=== PATIENT | male | born 1985 | race Caucasian/White ===

== ENCOUNTER 2017-04-24 10:08 | Emergency (ER) | payer OTHER ==
[2017-04-24 10:19] VITALS: BP 137/82; PULSE 79; RESP 16; TEMP 98.8; O2SAT 97
--- NOTE | 2017-04-24 11:18 | EDPHY ---
H & P Stated Complaint: apthous ulcer of tongue dx yesterday/now with increased lympadenopathy HPI/ROS: Chief complaint: Swollen lymph nodes on neck History of present illness: This is a 31-year-old male who presents to the emergency department for swollen lymph node on his neck. He has noted the lymph nodes developing over the last day on both sides. They are large and tender. He has had throat discomfort the last few days. He did go to urgent care yesterday and was diagnosed with an aphthous ulcer. He is using Magic mouthwash. He denies other associated signs or symptoms including no fevers, no swelling of the throat, no difficulty talking, swallowing or breathing. No other complaints. - Personal History Current Tetanus/Diphtheria Vaccine: No - Medical/Surgical History Hx Asthma: No Hx Chronic Respiratory Disease: No Hx Diabetes: No Hx Cardiac Disease: No Hx Renal Disease: No Hx Cirrhosis: No Hx Alcoholism: No Hx HIV/AIDS: No Hx Splenectomy or Spleen Trauma: No Other PMH: asthma, irregular heartbeat,anxiety/vocal chord dysfunction - Social History Smoking Status: Never smoked - Physical Exam Exam: General Appearance: Alert and no distress. Eyes: Pupils equal and round no injection. ENT: Tympanic membranes, external auditory canals, external easr and surrounding soft tissue including over the mastoids are unremarkable. Nasopharynx is not injected. There is no rhinorrhea. Oropharynx is mildly injected. There is no edema. There is no exudate. There is no asymmetry. The uvula is midline. No elevation of the tongue. There is no hoarseness, no drooling, no trismus, no stridor. Lymph: Bilateral cervical adenopathy that is tender. No adenopathy noted to the rest of had, supraclavicularly or axillary. Respiratory: Chest is non tender, lungs are clear to auscultation. Cardiac: regular rate and rhythm Musculoskeletal: Neck is supple and non tender. Extremities have full range of motion and are non tender. Skin: No rashes or lesions. Constitutional: Initial Vital Signs Temperature (C) 37.1 C 04/24/17 10:15 Heart Rate 79 04/24/17 10:15 Respiratory Rate 16 04/24/17 10:15 Blood Pressure 137/82 H 04/24/17 10:15 O2 Sat (%) 97 04/24/17 10:15 O2 Delivery Mode Room Air Allergies/Adverse Reactions: Sulfa (Sulfonamide Antibiotics) Allergy (Verified 04/24/17 10:14) Home Medications: Medication Instructions Recorded Escitalopram Oxalate 10 mg PO DAILY 06/17/16 Medical Decision Making ED Course/Re-evaluation: Patient seen under the supervision of my primary supervising physician Dr. Lin Calderon. Patient presents to the emergency department for evaluation of swelling of his lymph nodes in his neck. He does have what appears to be a current infection of his oropharynx. Strep swab is negative. Likely these are reactive lymph nodes. I have discussed with him to follow up with his primary care doctor to re-evaluate these and insure they resolve and if not for further evaluation. Return precautions are given. Patient voiced understanding and agreement with plan. Differential Diagnosis: Included but not limited to reactive lymphadenopathy, malignant lymphadenopathy , abscess formation Departure - Departure Disposition: Home, Routine, Self-Care Clinical Impression: Lymphadenopathy Condition: Good Instructions: Lymphadenopathy (ED) Additional Instructions: Follow-up with primary care doctor for recheck to ensure that you lymph nodes return to normal If symptoms worsen or new symptoms develop return to the emergency room for recheck Referrals: NONE *PRIMARY CARE P,. [Primary Care Provider] - As per Instructions
== END 2017-04-24 11:42 | disposition home or self-care (01) ==
DX: R59.0 Localized enlarged lymph nodes (principal); J45.909 Unspecified asthma, uncomplicated

== ENCOUNTER 2018-06-28 10:53 | Observation (INO) | payer OTHER ==
[2018-06-28] MEDS ORDERED: NS 1,000 ML IV ONE (10:57)
[2018-06-28 11:45] LABS: PLATELET COUNT 252 10^3/uL (150-400)
--- NOTE | 2018-06-28 11:47 | PDGENHP ---
History & Physical Chief Complaint: SVT up to 260bpm History of Present Illness: SVT with HRs up to 260bpm noted on [employer] loop recorder. Relevant Physical Exam: General: A&Ox4, no apparent distress. Respiratory: CTA. Cardiac: Regular rate and rhythm, S1, S2. Extremities: Pulses 2+ bilaterally, no edema Cardiorespiratory Assessment: Proceed with EPS and SVT ablation as planned for today
[2018-06-28 11:55] LABS: INR 1.06 (0.83-1.16)
[2018-06-28] MEDS ORDERED: MIDAZOLAM 2 MG/2 ML VIAL IVP ONE (12:51)
[2018-06-28] MEDS ORDERED: HEPARIN 10,000 UNIT/10 ML MDV (1,000 UNIT/ML) ONE (12:51)
[2018-06-28] MEDS ORDERED: LIDOCAINE 1% 300 MG/30 ML SDV ONE (12:51)
[2018-06-28] MEDS ORDERED: ISOPROTERENOL HCL/D5W 0.2 MG/50 ML BAG IV ONE ×2 (12:52→15:11)
[2018-06-28] MEDS ORDERED: MIDAZOLAM 2 MG/2 ML VIAL ONE (12:52)
[2018-06-28] MEDS ORDERED: BUPIVACAINE 0.75% 10 ML SDV ONE (12:52)
--- NOTE | 2018-06-28 12:52 | PDANEPAE ---
ANE History of Present Illness SVT ANE Past Medical History - Cardiovascular History Hx Hypertension: No Hx Arrhythmias: Yes Hx Chest Pain: No Hx Coronary Artery / Peripheral Vascular Disease: No Hx CHF / Valvular Disease: No Hx Palpitations: Yes Cardiovascular History Comment: +SVT - Pulmonary History Hx COPD: No Hx Asthma/Reactive Airway Disease: No Hx Recent Upper Respiratory Infection: No Hx Oxygen in Use at Home: No Hx Sleep Apnea: No - Endocrine History Hx Diabetes: No Hypothyroid: No Hyperthyroid: No Obesity: no - Renal History Hx Renal Disorders: No - Liver History Hx Hepatic Disorders: No ANE Review of Systems Review of systems is: negative Review of Systems: - Exercise capacity Exercise capacity: >=4 METS ANE Patient History - Allergies Allergies/Adverse Reactions: Sulfa (Sulfonamide Antibiotics) Allergy (Verified 04/24/17 10:14) - Home Medications Home medications: home medication list seen and reviewed Home Medications: Escitalopram Oxalate [Lexapro] 20 mg PO DAILY 06/17/16 [Last Taken Unknown] Ibuprofen [Motrin (*)] 200 - 600 mg PO DAILY PRN 06/21/18 [Last Taken Unknown] - NPO status NPO Status: no food or drink >8 hours - Anes Hx Anes Hx: no prior problems - Smoking Hx Smoking Status: Never smoked ANE Labs/Vital Signs - Labs Result Diagrams: 06/28/18 11:05 06/28/18 11:05 - Vital Signs Vital Signs: reviewed preoperatively; see RN documention for details ANE Physical Exam - Airway Neck exam: FROM Mallampati Score: Class 2 Mouth exam: normal dental/mouth exam - Pulmonary Pulmonary: no respiratory distress - Cardiovascular Cardiovascular: regular rate and rhythym - ASA Status ASA Status: II ANE Anesthesia Plan Anesthesia Plan: general endotracheal anesthesia
[2018-06-28] MEDS ORDERED: PROPOFOL 200 MG/20 ML VIAL ONE (13:22)
[2018-06-28] MEDS ORDERED: fentaNYL 100 MCG/2 ML INJ ONE (13:22)
[2018-06-28] MEDS ORDERED: ROCURONIUM 50 MG/5 ML VIAL ONE ×2 (13:24→14:07)
[2018-06-28] MEDS ORDERED: DEXAMETHASONE 4 MG/ML VIAL ONE ×2 (13:27)
[2018-06-28] MEDS ORDERED: ONDANSETRON 4 MG/2 ML VIAL ONE (13:27)
[2018-06-28] MEDS ORDERED: NALOXONE HCL 0.4 MG/ML INJ IVP PRN (15:30)
[2018-06-28] MEDS ORDERED: IBUPROFEN 200 MG TAB PO PRN (15:31)
[2018-06-28] MEDS ORDERED: ACETAMINOPHEN 500 MG TAB PO PRN (15:40)
[2018-06-28] MEDS ORDERED: ALBUTEROL 3 ML DEYVIAL IH PRN (15:40)
[2018-06-28] MEDS ORDERED: MEPERIDINE 25 MG/0.5 ML AMP IVP PRN (15:40)
[2018-06-28] MEDS ORDERED: LR 500 ML IV PRN (15:40)
[2018-06-28] MEDS ORDERED: PROMETHAZINE HCL 25 MG/ML INJ IVP PRN (15:40)
[2018-06-28] MEDS ORDERED: LABETALOL HCL 5 MG/ML 20 ML MDV IVP PRN (15:40)
[2018-06-28] MEDS ORDERED: oxyCODONE IR 5 MG TAB PO PRN (15:40)
[2018-06-28] MEDS ORDERED: METOCLOPRAMIDE 10 MG/2 ML VIAL IVP PRN (15:40)
--- NOTE | 2018-06-28 15:40 | EPPROC ---
Electrophysiology Procedure Note: ELECTROPHYSIOLOGIC STUDY AND CATHETER MEDIATED ABLATION OF SLOW/FAST AV EMILY REENTRY TACHYCARDIA PROCEDURES PERFORMED: 12307-87 EP evaluation with RA/RV/LA pace/record, with arrhythmia induction 33166-27 EP evaluation with RA/RV pace record, insert/reposition catheter, with arrhythmia induction 70771 Intracardiac catheter ablation, SVT arrhythmogenic focus 94496 3D mapping Fluoroscopy INDICATION: SVT, rates up to 260 bpm PROCEDURE: Catheters & Anesthesia: The patient arrived in the Electrophysiology Laboratory in the fasting state. The right clavicular region, right groin, and left groin area were prepped and draped in the usual sterile manner. Anesthesiologist administered general anesthesia. Appropriate non-invasive blood pressure, pulse oximetry and end- tidal CO2 monitoring was established. All catheters were placed percutaneously using the modified Seldinger technique , and advanced into position under fluoroscopic guidance. One #6 Stateless hexapolar non-deflectable electrode catheter was inserted into the right atrial appendage via the left femoral vein (2mm spacing; except the proximal ring which was 25cm from the tip used for unipolar recordings). One #7 Stateless deflectable octapolar electrode catheter was advanced to the His-bundle position via the left femoral vein (2mm spacing). One #7 Stateless deflectable quadrapolar catheter was advanced to the anteroseptal right ventricle via the right femoral vein. One #7 Stateless deflectable catheter with 10 pairs of electrodes was placed via the right femoral vein into the coronary sinus. Heparin was given to keep ACT > 200 s. Programmed stimulation was performed from the right atrium, right ventricle and coronary sinus (left atrium). Parahisian pacing demonstrated constant H-A interval with changing V-A intervals and stimulus-A intervals during capture and loss of capture of proximal RBB proving retrograde conduction over AV node. AVNRT was induced easily during infusion of isoproterenol 2 mcg/min. Ventricular extrastimuli delivered during tachycardia without altering antegrade His bundle activation did not advance next atrial potential, indicating that the tachycardia was not utilizing an accessory pathway for retrograde conduction. VA interval was 0 ms. Post entrainment of the tachycardia from the ventricle, there was VAHV response. Mapping of the right atrium and coronary sinus during AVNRT identified earliest atrial activation above the tendon of Brenda at a level slightly posterior to the level of the His bundle, consistent with retrograde conduction over the fast AV emily pathway. A #8 Stateless deflectable quadrapolar electrode catheter (2mm-5mm-2mm spacing) with 4 mm tip electrode and sensor for the 3D mapping Carto system was advanced to the right atrium. 3 D mapping of the inter-atrial septum and coronary sinus was performed and location of the AV node was marked. A Mobi sheath was used. RF applications were delivered to the region between the tricuspid annulus and the coronary sinus ostium, at the level of the upper edge of the coronary sinus ostium. Radiofrequency applications were also delivered along the roof of the proximal coronary sinus. Junctional rhythm occurred during all of the RF applications. Programmed stimulation was continued post ablation at baseline and during graded doses of isoproterenol upto 4mcg/min. Sustained AVNRT was not inducible. There were no echo beats. Slow AV emily pathway was still present but AVNRT was not inducible. There was an atrial tachycardia, likely R sided/septal (CS late), longest 13 s, CL 360 ms, occured on 2 occasions. This could not be reproduced and therefore was not targeted for ablation. The catheters were removed. Sheaths were removed in the EP lab after applying subcutaneous purse string suture. The patient was transferred to the cardiovascular holding area in stable condition. There were no apparent complications. Results: A. Spontaneous Intervals: Pre ablation SCL 740 ms AH 60 ms HV 40 ms Post ablation SCL 630 ms AH 55 ms HV 40 ms B. Antegrade AV emily function (decremental pacing) Pre ablation FPERP 430 ms SPERP 370 ms WBB CL 360 ms Post ablation FPERP 430 ms SPERP 350 ms WBB CL 340 ms C. Retrograde AV emily function (decremental pacing) Pre ablation FPERP 360 ms CL 350 ms D. Arrhythmias: 1. 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 Atrial tachycardia, nonsustained, CL 360 ms, longest duration 13 seconds, occured x 3, not targeted for ablation CONCLUSIONS 1. AV emily reentrant tachycardia using the slow AV emily pathway for antegrade conduction and the fast AV emily pathway for retrograde conduction. ( Slow/fast AVNRT). 2. Successful ablation of the slow AV emily pathway with elimination of inducibility of AVNRT. 3. Atrial tachycardia, nonsustained, not targeted for ablation. 4. No complications.
[2018-06-29 04:16] LABS: PLATELET COUNT 251 10^3/uL (150-400)
[2018-06-29 07:31] VITALS: BP 122/66
--- NOTE | 2018-06-29 08:43 | ECHO ---
[email or web address] [address] Main: [phone] Fax: Transthoracic Echocardiogram Name: ALAYNA PERRY MR#: [id number] Study Date: 06/29/2018 Study Time: 08:07 AM Date of : 1985 Age: 32 year(s) Height: 180.3 cm (71 in.) Weight: 86.18 kg (190 lb.) BSA: 2.06 m2 Gender: Male Examination: Echo Indication: Post Ablation Image Quality: Contrast: Requested by: Raquel Sinclair BP: 122 mmHg/66 mmHg Heart Rate: Rhythm: Normal sinus rhythm Indication: Post Ablation Procedure Staff Senior Test Engineer: Garo See RDCS Reading Physician: Lc Avelar MD Requesting Provider: Conclusions: Normal global systolic LV function. EF is 68 %. No pericardial effusion. Measurements: Chambers l 1 n3 Valvular Assessment AV/MV l 1 n3 Valvular Assessment TV/PV l 1 n3 Normal Normal Normal Name Value Range l 1 n3 Name Value Range l 1 n3 Name Value Range l 1 n3 Ao Tricia (MM): 3.9 cm (2.2 cm-3.7 AV Vmax: 1.05 m/s (1 m/s-1.7 PV Vmax: 0.94 m/s (0.6 m/s-0.9 cm) l 1 n3 m/s) l 1 n3 m/s) l 1 n3 IVSd (2D): 0.8 cm (0.6 cm-1.1 AV maxP mmHg ( - ) l 1 n3 PV PGmax: 4 mmHg ( - ) l 1 n3 cm) l 1 n3 LVOT Vmax: 0.89 m/s (0.7 m/s-1.1 LVDd (2D): 5.1 cm (4.2 cm-5.9 m/s) l 1 n3 cm) l 1 n3 MV E Vmax: 0.64 m/s ( - ) l 1 n3 LVDs (2D): 3.1 cm (2.1 cm-4 MV A Vmax: 0.51 m/s ( - ) l 1 n3 cm) l 1 n3 MV E/A: 1.25 ( - ) l 1 n3 LVPWd (2D): 0.9 cm (0.6 cm-1 cm) l 1 n3 LVEF (2D): 68 (>=54 %) l 1 n3 Continued Measurements:l 1 n3 Chambers l 1 n3 Valvular Assessment AV/MV l 1 n3 Name Value l 1 n3 Name Value l 1 n3 LADs Lon.6 cm MV E' Septal: 0.10 m/s l 1 n3 Patient: ALAYNA PERRY Study Date: 06/29/2018 Page 1 of 2 08:07 AM LA Area: 15.3 cm2 l 1 n3 MV E/E' Septal: 6.50 l 1 n3 LA Volume: 48 ml l 1 n3 MV E/E' Lateral: 3.80 l 1 n3 LA Volume Index: 23.3 ml/m2 l 1 n3 Findings: Left Ventricle: Normal size left ventricle. No LV hypertrophy. Normal global systolic LV function. EF is 68 %. No regional wall motion abnormality. Normal diastolic LV function. Right Ventricle: Normal size right ventricle. Normal RV function. Left Atrium: The left atrium is normal in size. Right Atrium: The right atrium is normal in size. Mitral Valve: The mitral valve is normal in appearance and function. There is no mitral valve regurgitation. Aortic Valve: The aortic valve is tri-leaflet. The aortic valve is normal in appearance and function. There is no aortic valve regurgitation. No aortic valve stenosis is present. Tricuspid Valve: The tricuspid valve is normal in appearance and function. Trivial tricuspid valve regurgitation. Pulmonic Valve: The pulmonic valve is normal in appearance and function. Aorta: The aorta is normal. Pericardium: No pericardial effusion. s p@ c 3 (No Signature Object) Patient: ALAYNA PERRY Study Date: 06/29/2018 Page 2 of 2 08:07 AM [id number]
[2018-06-29] MEDS ORDERED: ESCITALOPRAM OXALATE 10 MG TAB PO SCH (09:00)
--- NOTE | 2018-06-29 09:23 | ASDISCHSUM ---
Discharge Information Plan Status:Home with No Needs Medically Cleared to Leave:06/28/2018 Discharge Date:06/28/2018 CM D/C Disposition:Home, Routine, Self-Care ADT D/C Disposition:Home, Routine, Self-Care Projected Discharge Date:06/28/2018 Transportation at D/C: Discharge Delay Reason: Follow-Up Date:06/28/2018 Discharge Slot: Final Diagnosis: Placement Information Patient Contact Information Contact Name:YESI Relationship:Mother Address: City: [facility] Phone: [facility] [address]/Zip Code: Email: Financial Information Financial Class:HMO and PPO Plans Primary Plan Desc:[employer] PPO POS HMO SIG ADM Primary Plan Number:[id number] Secondary Plan Desc: Secondary Plan Number: Assessment Information LACE LACE Length of stay for Answers: Less than 1 day current admission Acuity / Level of Answers: No Care: Did the patient have an inpatient admission? Comorbidities - select Answers: Other Notes: SVT; Asthma all that apply # of Emergency department Answers: 0 visits in the last 6 months Social determinants Answers: Mental health diagnosis (anxiety, depression, pers onality disorders, etc.) Score: 4 Date Signed: 06/29/2018 09:21 AM Electronically Signed By:Coleen Gonsalez RN Intervention Information
--- NOTE | 2018-06-29 14:32 | CPEKG ---
Test Reason : OPEN Blood Pressure : / mmHG Vent. Rate : 079 BPM Atrial Rate : 079 BPM P-R Int : 171 ms QRS Dur : 101 ms QT Int : 388 ms P-R-T Axes : 048 226 052 degrees QTc Int : 445 ms Sinus rhythm Right axis deviation Confirmed by Rico Diamond ([id number]) on 06/29/2018 2:32:27 PM Referred By: Confirmed By:Rico Diamond
--- NOTE | 2018-06-29 14:37 | CPEKG ---
Test Reason : OPEN Blood Pressure : / mmHG Vent. Rate : 075 BPM Atrial Rate : 076 BPM P-R Int : 191 ms QRS Dur : 102 ms QT Int : 389 ms P-R-T Axes : 055 074 029 degrees QTc Int : 435 ms Sinus rhythm Confirmed by Rico Diamond ([id number]) on 06/29/2018 2:37:01 PM Referred By: Confirmed By:Rico Diamond
--- NOTE | 2018-06-29 14:37 | CPEKG ---
Test Reason : OPEN Blood Pressure : / mmHG Vent. Rate : 105 BPM Atrial Rate : 106 BPM P-R Int : 161 ms QRS Dur : 097 ms QT Int : 363 ms P-R-T Axes : 063 131 051 degrees QTc Int : 480 ms Sinus tachycardia Right axis deviation Borderline prolonged QT interval Confirmed by Rico Diamond ([id number]) on 06/29/2018 2:36:45 PM Referred By: Confirmed By:Rico Diamond
--- NOTE | 2018-06-29 19:36 | GDS ---
SUPERVISING QUALITY CONTROL CHECKER: Dr. Lc Avelar. ADMISSION DIAGNOSES: Supraventricular tachycardia. DISCHARGE DIAGNOSES: 1. Atrioventricular shobha re-entrant tachycardia. 2. Atrial tachycardia, nonsustained. PROCEDURES PERFORMED: During hospitalization. 1. Electrocardiogram. 2. Echocardiogram. 3. Electrophysiology study. 4. AVNRT ablation. HOSPITAL COURSE: The patient presented June 28, 2018, for SVT ablation in the setting of increasing frequency of symptomatic episodes of supraventricular tachycardia. He underwent successful ablation of AV shobha reentrant tachycardia with Dr. Lc Avelar. A nonsustained atrial tachycardia was also noted during the electrophysiology study with the longest duration lasting 13 seconds. This was not targeted for ablation. There were no intraprocedural complications and the patient has done very well in the postprocedure setting. He is appropriate and stable for discharge home at this time. PHYSICAL EXAMINATION: GENERAL: He is alert and oriented x4 without any apparent distress. VITAL SIGNS: Blood pressure 116/58, heart rate 86, SpO2 94 % on room air. Respiratory rate 19, temp 36.8. RESPIRATORY: Lungs are clear to auscultation without adventitious breath sounds. CARDIAC: Normal S1, S2, no S3, S4, or murmurs. Rhythm is regular. ABDOMEN: Normoactive bowel sounds times all 4 quadrants, no masses or tenderness. ABDOMEN: Soft to palpation. SKIN: [place], warm, and dry without cyanosis, clubbing, or peripheral edema. EXTREMITIES: Bilateral purse string sutures removed intact without evidence of hematoma, redness, oozing, swelling, or warmth. Pulses are 2+ bilaterally. No edema. LABORATORY STUDIES: Drawn today, WBCs are 10.47, CBC is otherwise stable compared to the preprocedure examination. BMP is stable. Troponin is 0.524. WBCs and troponin elevation are expected in the postprocedure setting. PROCEDURES: Electrophysiology study and SVT ablation as mentioned above. A preliminary echocardiogram done this morning demonstrates normal left ventricular systolic function without new wall motion abnormalities or pericardial effusion. Electrocardiogram this morning demonstrates normal sinus rhythm without new ST, T-wave, or P-R interval abnormalities. DISCHARGE DISPOSITION: The patient will be discharged home in stable condition. He is under activity restrictions as below. DISCHARGE MEDICATIONS: Please see discharge medication reconciliation sheet for full details. DISCHARGE INSTRUCTIONS: Post SVT ablation discharge instructions reviewed with patient in detail. We discussed activity restrictions including lifting no more than 10 pounds and avoidance of submerged bathing for 10 days. He will get up and walk around every 45 minutes for 45 days. We also reviewed bleeding precautions, medication compliance, monitoring for signs and symptoms of infection, and monitoring for sustained recurrent arrhythmias. At the time of discharge, he verbalizes understanding of all discharge instructions without questions or concerns. He has a followup visit scheduled on July 23 and will contact our clinic for any new or concerning symptoms prior to his upcoming visit. Time spent on discharge greater than 30 minutes. /[id number]/MODL MTDD
--- NOTE | 2018-06-30 16:45 | POSTANESTH ---
Post Anesthetic Evaluation Cardiovascular Status: Normal, Stable Respiratory Status: Normal, Stable Level of Consciousness/Mental Status: Can Participate in Eval Pain Control: Adequate, Prn Tx Ordered Nausea/Vomiting Control: Adequate, Prn Tx Ordered (for EP procedure on 06/28/18)
== END 2018-06-29 10:22 | disposition home or self-care (01) ==
LOC: FCATH 10:53 → F2W 17:30
PROVIDERS: ADMIT Internal Medicine Cardiovascular Disease; ATTEND Internal Medicine Cardiovascular Disease
PROC: 02583ZZ Destruction of Conduction Mechanism, Percutaneous Approach (ICD-10-PCS; principal; 2018-06-28)
PROC: 4A023FZ Measurement of Cardiac Rhythm, Percutaneous Approach (ICD-10-PCS; principal; 2018-06-28)
PROC: 02K83ZZ Map Conduction Mechanism, Percutaneous Approach (ICD-10-PCS; principal; 2018-06-28)
DX: I47.1 Supraventricular tachycardia (principal); I10 Essential (primary) hypertension
CPT/HCPCS: 93005; 93306; 93613; 93621; 93623; 93653; C1730; C1732; G0378; C1731; C1766; J1100; J1644; J2250; J2405; J2704; J3010